=== PATIENT | female | born 2000 | race Caucasian/White ===

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

== ENCOUNTER 2018-03-16 23:50 | Emergency (ER) | payer MEDICAID ==
[2018-03-17 01:12] LABS: BASOPHILS # (AUTO) 0.1 10^3/uL (0.0-0.1); BASOPHILS % (AUTO) 0.8 %; EOSINOPHILS # (AUTO) 0.1 10^3/uL (0.0-0.7); EOSINOPHILS % (AUTO) 1.2 %; LYMPHOCYTES # (AUTO) 2.9 10^3/uL (1.5-3.5); LYMPHOCYTES % (AUTO) 33.1 %; MEAN CORPUSCULAR HEMOGLOBIN 25.7 pg (27.0-31.0); MEAN CORPUSCULAR HGB CONC 32.2 g/dL (32.0-36.0); MEAN CORPUSCULAR VOLUME 79.8 fL (81.0-99.0); MONOCYTES # (AUTO) 0.8 10^3/uL (0.0-1.0); MONOCYTES % (AUTO) 9.2 %; NEUTROPHILS % (AUTO) 55.7 %; PLT - PLATELET COUNT 260 10^3/uL (130-450); RED BLOOD COUNT 4.66 10^6/uL (4.20-5.40); RED CELL DISTRIBUTION WIDTH 15.1 % (12.0-15.0); WHITE BLOOD COUNT 8.9 x10^3/uL (4.8-10.8)
[2018-03-17 01:20] LABS: INR 1.1 (0.8-1.2); PT - PROTHROMBIN TIME 12.4 secs (9.9-12.6)
--- NOTE | 2018-03-17 01:48 | ED Physician Documentation ---
PD HPI HEENT - Stated complaint Stated Complaint: NOSE BLEED - Chief complaint Chief Complaint: Heent - History obtained from History obtained from: Patient, Family - History of Present Illness Timing - onset: Yesterday Timing - details: Intermittant Location: Nose Similar symptoms before: Has not had sx before Recently seen: Not recently seen - Additional information Additional information: Patient is a 17 year old female with no significant past medical history who is presenting to the emergency department for nose bleeds. patient states that over the last couple of days she has had multiple nose bleeds. patient denies any trauma, or any exposure to vents, air conditioners or heaters. patient states that she also has heavy periods. Review of Systems Ten Systems: 10 systems reviewed and negative Nose: reports: Epistaxis PD PAST MEDICAL HISTORY - Past Medical History Past Medical History: No - Past Surgical History Past Surgical History: No - Present Medications Home Medications: Ambulatory Orders Medication Instructions Recorded Confirmed No Known Home Medications [No 06/01/17 06/01/17 Known Home Medications] - Allergies Allergies/Adverse Reactions: Allergies Allergy/AdvReac Type Severity Reaction Status Date / Time No Known Drug Allergies Allergy Verified 03/17/18 00:16 - Social History Does the pt smoke?: No Smoking Status: Never smoker Does the pt drink ETOH?: No Does the pt have substance abuse?: No - Immunizations Immunizations are current?: Yes - POLST Patient has POLST: No PD ED PE NORMAL - Vitals Vital signs reviewed: Yes - General General: Alert and oriented X 3, No acute distress - HEENT HEENT: Atraumatic, Ears normal, Moist mucous membranes - Cardiac Cardiac: RRR - Respiratory Respiratory: No respiratory distress - Abdomen Abdomen: Non distended - Derm Derm: Normal color, Warm and dry - Extremities Extremities: No deformity - Neuro Neuro: Alert and oriented X 3 Eye Opening: Spontaneous PD ED PE EXPANDED - HEENT HEENT: No: Right nares epsitaxis, Left nares epistaxis Results - Vitals Vitals: Vital Signs - 24 hr 03/17/18 00:14 Temperature 36.7 C Heart Rate 59 L Respiratory 16 Rate Blood Pressure 121/72 O2 Saturation 100 Oxygen O2 Source Room air - Labs Labs: Laboratory Tests 03/17/18 03/17/18 00:58 00:58 WBC 8.9 RBC 4.66 Hgb 12.0 Hct 37.1 MCV 79.8 L MCH 25.7 L MCHC 32.2 RDW 15.1 H Plt Count 260 MPV 8.0 Neut # 5.0 Lymph # 2.9 [place] # 0.8 Eos # 0.1 Baso # 0.1 Absolute Nucleated RBC 0.00 Nucleated RBC % 0.0 PT 12.4 INR 1.1 APTT 26.4 PD MEDICAL DECISION MAKING - ED course Complexity details: reviewed old records, reviewed results, re-evaluated patient , considered differential, d/w patient, d/w family ED course: Patient was seen and examined at bedside. Patient was well appearing and in no distress. labs were drawn and were within normal limits. Patient had no episode of epistaxis while in the emergency department. patient required no further work up and was stable for discharge with outpatient follow up. Departure - Departure Disposition: 01 Home, Self Care Clinical Impression: Epistaxis not due to trauma Condition: Good Instructions: Nosebleed Follow-Up: primary,care provider [Other] - As Needed Comments: Your diagnostics today are within normal limits. there are no acute abnormalities on your blood work. You should keep the inside of your nose moist with vaseline or lotion. If your nose bleeds again you should apply pressure. You should follow up with your doctor if your symptoms become more frequent. You may return to the emergency department at any time for new, worsening or uncontrollable symptoms.
[2018-03-17 01:54] VITALS: BP 127/79
== END 2018-03-17 01:55 | disposition home or self-care (01) ==
LOC: ED 23:50
DX: R04.0 Epistaxis (principal)
CPT/HCPCS: 36415; 85025; 85610; 85730; 99283